=== PATIENT | female | born 1955 | race Caucasian/White ===

== ENCOUNTER 2016-09-06 14:48 | Emergency (ER) | payer BC ==
[2016-09-06] MEDS ORDERED: SODIUM CHLORIDE 0.9% 500 ML IV STA (15:39)
--- NOTE | 2016-09-06 15:42 | ED ---
General Adult HPI - General Chief complaint: Recheck/Abnormal Lab/Rx Stated complaint: [facility]/HBP Time Seen by Provider: 09/06/16 15:32 Source: patient, RN notes reviewed Mode of arrival: ambulatory Limitations: no limitations - History of Present Illness Initial comments: 61-year-old female presents to the emergency department with a chief complaint of hypertension. Patient states that this high blood pressures been going on for the past few weeks. Patient states she notices that with activities she is getting a higher blood pressure than normal. Station of her blood pressure and noticed it was 180s over 110. Patient states patient was seen pain. Patient states that she went to urgent care and they informed to come to the emergency department. Patient denies any chest pain or shortness of breath with this. Patient states that when it was very high she has a mild headache but that has since resolved. Patient states she was concerned due to the blood pressure and then medics were sent her here so she thought that she should be evaluated. Patient denies any history of heart issues. Patient states that she does have borderline blood pressure but she recently gained weight it is most likely why her blood pressures she states area the patient states that she is not currently having any other symptoms at this time.Patient denies any recent fever , chills, shortness of breath, chest pain, back pain, abdominal pain, nausea vomiting, numbness or tingling, dysuria or hematuria, constipation or diarrhea, headaches or visual changes, or any other current symptoms. - Related Data Home Medications Medication Instructions Recorded Confirmed FLUoxetine HCL [PROzac] 30 mg PO DAILY 09/06/16 09/06/16 Fluticasone Nasal [place] [Flonase 2 spr EA NOSTRIL DAILY PRN 09/06/16 09/06/16 Nasal [place]] Ibuprofen [Motrin] 400 mg PO Q6HR PRN 09/06/16 09/06/16 Potassium 99 mg PO DAILY 09/06/16 09/06/16 Spironolactone [Aldactone] 50 mg PO DAILY 09/06/16 09/06/16 clonazePAM [KlonoPIN] 0.25 mg PO Q12HR PRN 09/06/16 09/06/16 Previous Rx's Medication Instructions Recorded Lisinopril [Prinivil] 5 mg PO DAILY #10 tablet 09/06/16 Allergies Allergy/AdvReac Type Severity Reaction Status Date / Time erythromycin base Allergy Nausea & Verified 09/06/16 15:46 Vomiting sulfamethoxazole Allergy Nausea Verified 09/06/16 15:46 [From Bactrim] tetracycline Allergy Rash/Hives Verified 09/06/16 15:46 trimethoprim [From Bactrim] Allergy Nausea Verified 09/06/16 15:46 Review of Systems ROS Statement: Those systems with pertinent positive or pertinent negative responses have been documented in the HPI. ROS Other: All systems not noted in ROS Statement are negative. Past Medical History Past Medical History: GERD/Reflux Past Surgical History: Section, Cholecystectomy, Hysterectomy, Tubal Ligation Past Psychological History: Depression Smoking Status: Former smoker Past Alcohol Use History: None Reported Past Drug Use History: None Reported General Exam - General Exam Comments Initial Comments: General: The patient is awake and alert, in no distress, and does not appear acutely ill. Eye: Pupils are equal, round. Ears, nose, mouth and throat: There are moist mucous membranes and no oral lesions. Neck: The neck is supple, there is no tenderness. Cardiovascular: There is a regular rate and rhythm. No murmur, rub or gallop is appreciated. Respiratory: Lungs are clear to auscultation, respirations are non-labored, breath sounds are equal. No wheezes, stridor, rales, or rhonchi. Gastrointestinal: Soft, non-distended, non-tender abdomen without masses or organomegaly noted. There is no rebound or guarding present. No CVA tenderness. Bowel sounds are unremarkable. Back: There is no tenderness to palpation in the midline. There is no obvious deformity. No rashes noted. Musculoskeletal: Normal ROM, no tenderness, There is no pedal edema. There is no calf tenderness or swelling. Sensation intact. Pulses equal bilaterally 2+. Neurological: CN II-XII intact, There are no obvious motor or sensory deficits. Coordination appears grossly intact. Speech is normal. Skin: Skin is warm and dry and no rashes or lesions are noted. Psychiatric: Cooperative, appropriate mood & affect, normal judgment. Limitations: no limitations Course Vital Signs 09/06/16 09/06/16 09/06/16 15:00 16:07 17:00 Temperature 100.2 F H 98.2 F 98.2 F Pulse Rate 73 130 H 69 Respiratory 16 72 H 16 Rate Blood Pressure 175/74 129/82 127/86 O2 Sat by Pulse 98 94 L 94 L Oximetry Medical Decision Making - Medical Decision Making 61-year-old male presents to the emergency department with a chief complaint of hypertension. Patient's hypotension improved without any medication. Patient is asymptomatic at this time. The similar is reviewed. Did discuss that she has elevated creatinine. We did discuss we will start her on lisinopril for her blood pressure. We discussed follow up with her Dr. Flores. We discussed return parameters all the questions patient states she understands and she is in agreement with plan. She will be discharged home. - Lab Data Result diagrams: 09/06/16 15:55 09/06/16 15:55 Lab Results 09/06/16 09/06/16 09/06/16 Range/Units 15:55 15:55 15:55 WBC 8.1 (3.8-10.6) k/uL RBC 5.20 (3.80-5.40) m/uL Hgb 14.7 (11.4-16.0) gm/dL Hct 44.3 (34.0-46.0) % MCV 85.1 (80.0-100.0) fL MCH 28.3 (25.0-35.0) pg MCHC 33.3 (31.0-37.0) g/dL RDW 14.1 (11.5-15.5) % Plt Count 315 (150-450) k/uL Neutrophils % 68 % Lymphocytes % 23 % Monocytes % 5 % Eosinophils % 2 % Basophils % 1 % Neutrophils # 5.5 (1.3-7.7) k/uL Lymphocytes # 1.8 (1.0-4.8) k/uL Monocytes # 0.4 (0-1.0) k/uL Eosinophils # 0.2 (0-0.7) k/uL Basophils # 0.1 (0-0.2) k/uL Sodium 141 (137-145) mmol/L Potassium 4.1 (3.5-5.1) mmol/L Chloride 102 (98-107) mmol/L Carbon Dioxide 29 (22-30) mmol/L Anion Gap 10 mmol/L BUN 18 H (7-17) mg/dL Creatinine 1.35 H (0.52-1.04) mg/dL Est GFR (MDRD) Af Amer 48 (>60 ml/min/1.73 sqM) Est GFR (MDRD) Non-Af 40 (>60 ml/min/1.73 sqM) Glucose 92 (74-99) mg/dL Calcium 9.5 (8.4-10.2) mg/dL Total Bilirubin 0.9 (0.2-1.3) mg/dL AST 25 (14-36) U/L ALT 35 (9-52) U/L Alkaline Phosphatase 110 (38-126) U/L Total Protein 7.3 (6.3-8.2) g/dL Albumin 4.6 (3.5-5.0) g/dL Urine Color Light Yellow Urine Appearance Clear (Clear) Urine pH 7.0 (5.0-8.0) Ur Specific [place] 1.010 (1.001-1.035) Urine Protein Negative (Negative) Urine Glucose (UA) Negative (Negative) Urine Ketones Negative (Negative) Urine Blood Negative (Negative) Urine Nitrite Negative (Negative) Urine Bilirubin Negative (Negative) Urine Urobilinogen <2.0 (<2.0) mg/dL Ur Leukocyte Esterase Large H (Negative) Urine RBC <1 (0-5) /hpf Urine WBC 8 H (0-5) /hpf Ur Squamous Epith Cells <1 (0-4) /hpf Urine Bacteria Rare H (None) /hpf - EKG Data -: EKG Interpreted by Me 09/06/16 17:16 normal sinus rhythm 67 bpm, normal axis, no atopy, no S-T depressions or elevations, - Radiology Data Radiology results: report reviewed, image reviewed Disposition Clinical Impression: Hypertension, Elevated creatine kinase Disposition: HOME SELF-CARE Condition: Stable Instructions: Hypertension (ED) Additional Instructions: Please use medication as discussed. Please follow up with family doctor if symptoms have not improved over the next two days. Please return to the emergency room if your symptoms increase or worsen or for any other concerns. Prescriptions: Lisinopril [Prinivil] 5 mg PO DAILY #10 tablet Referrals: Carter Melgoza DO [Primary Care Provider] - 1-2 days Time of Disposition: 17:17
--- NOTE | 2016-09-06 16:05 | XR ---
EXAMINATION TYPE: XR chest 2V DATE OF EXAM: 09/06/2016 4:02 PM COMPARISON: NONE INDICATION: Cough TECHNIQUE: Single frontal view of the chest is obtained. FINDINGS: The heart size is normal. The pulmonary vasculature is normal. The lungs are clear. IMPRESSION: 1. No acute pulmonary process.
[2016-09-06 16:14] LABS: Basophils # (A) 0.1 k/uL (0-0.2); Basophils % (A) 1 %; CH 27.9; Eosinophils # (A) 0.2 k/uL (0-0.7); Eosinophils % (A) 2 %; HCT 44.3 % (34.0-46.0); HDW 2.58; HGB 14.7 gm/dL (11.4-16.0); Luc # (Auto) 0.14; Luc % (Auto) 2; Lymphocytes # (A) 1.8 k/uL (1.0-4.8); Lymphocytes % (A) 23 %; MCH 28.3 pg (25.0-35.0); MCHC 33.3 g/dL (31.0-37.0); MCV 85.1 fL (80.0-100.0); Mean Platelet Volume 6.8; Monocytes # (A) 0.4 k/uL (0-1.0); Monocytes % (A) 5 %; Neutrophils # (A) 5.5 k/uL (1.3-7.7); Neutrophils % (A) 68 %; RDW 14.1 % (11.5-15.5); WBC 8.1 k/uL (3.8-10.6); WBC (Perox) 8.09
[2016-09-06 16:25] LABS: Calcium 9.5 mg/dL (8.4-10.2); Potassium 4.1 mmol/L (3.5-5.1); Total Bilirubin 0.9 mg/dL (0.2-1.3); Total Protein 7.3 g/dL (6.3-8.2)
[2016-09-06 16:26] LABS: Appearance,Urine Clear (Clear); Bacteria,Urine Rare /hpf; Bilirubin,Urine Negative (Negative); Glucose,Urine (UA) Negative (Negative); Ketones,Urine Negative (Negative); Leukocyte Esterase,Urine Large (Negative); Nitrite,Urine Negative (Negative); Particle Count 729; Protein,Urine Negative (Negative); RBC,Urine <1 /hpf (0-5); Squamous Epithelial Cell,Urine <1 /hpf (0-4); UA Billing (MACRO vs. MICRO) MICRO; Urobilinogen,Urine <2.0 mg/dL (<2.0); WBC,Urine 8 /hpf (0-5)
[2016-09-06 17:09] VITALS: TEMP 98.2
[2016-09-06 17:10] VITALS: RESP 16
[2016-09-06 18:16] VITALS: BP 170/95; PULSE 75
== END 2016-09-06 18:14 | disposition home or self-care (01) ==
LOC: EC 14:48 → SUPCPDRO 14:48 → EC 18:14
DX: I10 Essential (primary) hypertension (principal); R79.89 Other specified abnormal findings of blood chemistry; R63.5 Abnormal weight gain; F32.9 Major depressive disorder, single episode, unspecified; Z87.891 Personal history of nicotine dependence; Z79.899 Other long term (current) drug therapy; Z88.1 Allergy status to other antibiotic agents
CPT/HCPCS: 36415; 71020; 80053; 81001; 85025; 93005; 99283

== ENCOUNTER → 2016-12-07 | Outpatient (CLI) | payer BC ==
--- NOTE | 2016-12-07 09:59 | CT ---
EXAMINATION TYPE: CT brain wo con DATE OF EXAM: 12/07/2016 COMPARISON: NONE HISTORY: Transiant global amnesia CT DLP: 1067 mGycm Automated exposure control for dose reduction was used. FINDINGS: Ventricular system is midline with no mass effect or displacement. Congenital cavum septum anomaly no delilah. There is no acute hemorrhage. Dural calcifications are seen. Calvarium intact. IMPRESSION: NO ACUTE INTRACRANIAL PROCESS. THE TINY AREA OF DENSITY SEEN NEAR THE THIRD VENTRICLE WHICH CAN OCCAS IONALLY BE SEEN WITH A TINY COLLOID CYST. RECOMMEND FOLLOW-UP MRI.
== END | disposition home or self-care (01) ==
LOC: RADCTMAIN 09:24
PROVIDERS: ATTEND Psychiatry & Neurology Neurology
DX: G45.4 Transient global amnesia (principal); Z88.1 Allergy status to other antibiotic agents; Z88.2 Allergy status to sulfonamides
CPT/HCPCS: 70450

== ENCOUNTER → 2017-01-20 | Outpatient (CLI) | payer BC ==
[2017-01-20 17:54] LABS: Non-African American GFR(MDRD) >60 (>60 ml/min/1.73 sqM)
--- NOTE | 2017-01-20 23:47 | MR ---
EXAMINATION TYPE: MR brain wo/w con DATE OF EXAM: 01/20/2017 COMPARISON: NONE HISTORY: Dizziness, forgetfulness TECHNIQUE: Multiplanar, multisequence images of the brain and brainstem is performed without and with IV contras t, utilizing 7.5 mL intravenous Gadavist . FINDINGS: There are numerous scattered small high signal foci at the juan-white matter junction of eliseo th cerebral hemispheres. These measure up to 6 mm. The total number is more than 25. The ventricles o f normal size. There is no midline shift. There is no sign of intracranial hemorrhage. There are is a irregular 6 mm area of increased signal on the right side of the shyam. There is no significant corti saturnino atrophy. There is cavum septum pellucidum which is a normal variant. Sella turcica appears normal . There is no evidence of an orbital mass. The contrast images show no pathologic enhancement. Pituit florencio stalk is in the midline. IMPRESSION: Numerous white matter high signal foci. These are not near the lateral ventricles and mor e likely related to chronic small vessel ischemia. No evidence of a cortical infarct.
== END | disposition home or self-care (01) ==
LOC: RADMRIMAIN 17:19
PROVIDERS: ATTEND Psychiatry & Neurology Neurology
DX: R90.89 Other abnormal findings on diagnostic imaging of central nervous system (principal); G45.4 Transient global amnesia; R93.8 Abnormal findings on diagnostic imaging of other specified body structures
CPT/HCPCS: 82565; 70553; 36415; A9581

== ENCOUNTER 2018-06-02 15:28 | Emergency (ER) | payer BC ==
--- NOTE | 2018-06-02 17:18 | ED ---
General Adult HPI - General Chief complaint: Altered Mental Status Stated complaint: POSS CVA VOMITING AND CONFUSION Source: patient, family Mode of arrival: ambulatory Limitations: no limitations - History of Present Illness Initial comments: Dictation was produced using [employer] dictation software. please excuse any grammatical, word or spelling errors. Chief Complaint: 62-year-old female with chief complaint of 20 minutes of bizarre behavior. History of Present Illness: Patient 62-year-old female. Patient states she has past medical history GERD, hypertension, chronic nausea. She was at home today when she was severely nauseated. States she had an episode that lasted approximately 25 minutes of bizarre behavior. Son was at home when patient had this episode. He reports that she was exhibiting repetitive behavior. Patient is also responding to issues that did not actually occur however she made coherent sentence just out of contacts her son. Patient is saying things like "that's pia vu," she also had an episode where she accused her son when he didn 't actually swear. The symptoms lasted for only 20 minutes and she snapped out of it and became back to normal. She states her nausea had improved as well. Patient denies any recent additions or adjustments to ointment for current medications. The ROS documented in this emergency department record has been reviewed and confirmed by me. Those systems with pertinent positive or negative responses have been documented in the HPI. All other systems are other negative and/or noncontributory. PHYSICAL EXAM: General Impression: Alert and oriented x3, not in acute distress HEENT: Normocephalic atraumatic, extra-ocular movements intact, pupils equal and reactive to light bilaterally, mucous membranes moist. Cardiovascular: Heart regular rate and rhythm, S1&S2 audible, no murmurs, rubs or gallops Chest: Lungs clear to auscultation bilaterally, no rhonchi, no wheeze, no rales Abdomen: Bowel sounds present, abdomen soft, non-tender, non-distended, no organomegaly Musculoskeletal: Pulses present and equal in all extremities, no peripheral edema Motor: Power 5/5 bilaterally, no focal deficits noted Neurological: CN II-XII grossly intact, no focal motor or sensory deficits noted Skin: Intact with no visualized rashes Psych: Normal affect and mood ED course: 62-year-old female presents with brief episode of altered mental status. Vital signs upon arrival shows blood pressure 170 06/17/2022, rest of vital signs within acceptable limits.Laboratory evaluation obtained. CBC, coag panel, metabolic panel is unremarkable. Urinalysis is negative. CT brain and chest x-ray is unremarkable. Patient's clinical presentation/HPI. Consistent with TIA or CVA. Patient's mental status changes may be secondary to adverse reaction to medication. Patient is seen neurologists in the past has had positive findings on her MRI that have not been revisited for over a year. Patient advised to follow up with neurologist. Patient given referral to neurologist. This point no further intervention is indicated at this time. Patient clear for discharge. EKG interpretation: Ventricular rate 68, normal sinus rhythm, W[place] interval 164, care is 82, QTc 440. No W[place] prolongation, no QTC prolongation, no ST or T-wave changes noted. Overall, this EKG is unremarkable - Related Data Home Medications Medication Instructions Recorded Confirmed Fluticasone Nasal [place] [Flonase 2 spray EA NOSTRIL DAILY PRN 09/06/16 06/02/18 Nasal [place]] 5htp 100mg 100 mg PO DAILY 06/02/18 06/02/18 Biotin 10,000 mcg PO DAILY 06/02/18 06/02/18 Bpp Digestive Enzymes 1 - 2 cap PO AC-TID 06/02/18 06/02/18 Cholecalciferol [Vitamin D3] 1,000 unit PO DAILY 06/02/18 06/02/18 FLUoxetine HCL [PROzac] 20 mg PO DAILY 06/02/18 06/02/18 Finasteride 0.5 mg PO DAILY 06/02/18 06/02/18 Lisinopril [Prinivil] 5 mg PO Q48H 06/02/18 06/02/18 Melatonin 3 mg PO HS 06/02/18 06/02/18 [place] 3-6-9 2 cap PO DAILY 06/02/18 06/02/18 Omeprazole [PriLOSEC] 20 mg PO DAILY 06/02/18 06/02/18 ZOLMitriptan 2.5 mg PO QID PRN 06/02/18 06/02/18 Allergies Allergy/AdvReac Type Severity Reaction Status Date / Time benzonatate Allergy Rash/Hives Verified 06/02/18 17:31 [From Tiffanie Aguilar] erythromycin base Allergy Nausea & Verified 06/02/18 17:31 Vomiting sulfamethoxazole Allergy Nausea Verified 06/02/18 17:31 [From Bactrim] tetracycline Allergy Rash/Hives Verified 06/02/18 17:31 trimethoprim [From Bactrim] Allergy Nausea Verified 06/02/18 17:31 Review of Systems ROS Statement: Those systems with pertinent positive or pertinent negative responses have been documented in the HPI. ROS Other: All systems not noted in ROS Statement are negative. Past Medical History Past Medical History: GERD/Reflux, Hypertension Additional Past Medical History / Comment(s): migraines History of Any Multi-Drug Resistant Organisms: None Reported Past Surgical History: Section, Cholecystectomy, Hysterectomy, Tubal Ligation Past Psychological History: Depression Smoking Status: Former smoker Past Alcohol Use History: None Reported Past Drug Use History: None Reported General Exam Limitations: no limitations Course Vital Signs 06/02/18 06/02/18 06/02/18 15:36 17:53 19:09 Temperature 98 F 98.1 F Pulse Rate 78 76 68 Respiratory 18 18 17 Rate Blood Pressure 173/123 133/90 144/85 O2 Sat by Pulse 99 97 99 Oximetry Medical Decision Making - Lab Data Result diagrams: 06/02/18 17:05 06/02/18 17:05 Lab Results 06/02/18 06/02/18 06/02/18 Range/Units 17:05 17:05 17:05 WBC 8.7 (3.8-10.6) k/uL RBC 5.10 (3.80-5.40) m/uL Hgb 14.4 (11.4-16.0) gm/dL Hct 43.1 (34.0-46.0) % MCV 84.5 (80.0-100.0) fL MCH 28.2 (25.0-35.0) pg MCHC 33.4 (31.0-37.0) g/dL RDW 14.4 (11.5-15.5) % Plt Count 332 (150-450) k/uL Neutrophils % 74 % Lymphocytes % 16 % Monocytes % 5 % Eosinophils % 3 % Basophils % 1 % Neutrophils # 6.4 (1.3-7.7) k/uL Lymphocytes # 1.4 (1.0-4.8) k/uL Monocytes # 0.4 (0-1.0) k/uL Eosinophils # 0.3 (0-0.7) k/uL Basophils # 0.1 (0-0.2) k/uL PT (9.0-12.0) sec INR (<1.2) APTT (22.0-30.0) sec Sodium 140 (137-145) mmol/L Potassium 4.1 (3.5-5.1) mmol/L Chloride 104 (98-107) mmol/L Carbon Dioxide 28 (22-30) mmol/L Anion Gap 8 mmol/L BUN 14 (7-17) mg/dL Creatinine 0.84 (0.52-1.04) mg/dL Est GFR (CKD-EPI)AfAm 86 (>60 ml/min/1.73 sqM) Est GFR (CKD-EPI)NonAf 75 (>60 ml/min/1.73 sqM) Glucose 108 H (74-99) mg/dL Calcium 9.6 (8.4-10.2) mg/dL Total Bilirubin 1.0 (0.2-1.3) mg/dL AST 24 (14-36) U/L ALT 40 (9-52) U/L Alkaline Phosphatase 104 (38-126) U/L Total Creatine Kinase 91 (30-135) U/L CK-MB (CK-2) <0.2 (0.0-2.4) ng/mL CK-MB (CK-2) Rel Index Troponin I <0.012 (0.000-0.034) ng/mL Total Protein 7.1 (6.3-8.2) g/dL Albumin 4.5 (3.5-5.0) g/dL Urine Color Urine Appearance (Clear) Urine pH (5.0-8.0) Ur Specific [place] (1.001-1.035) Urine Protein (Negative) Urine Glucose (UA) (Negative) Urine Ketones (Negative) Urine Blood (Negative) Urine Nitrite (Negative) Urine Bilirubin (Negative) Urine Urobilinogen (<2.0) mg/dL Ur Leukocyte Esterase (Negative) Urine RBC (0-5) /hpf Ur Squamous Epith Cells (0-4) /hpf Urine Bacteria (None) /hpf Urine Mucus (None) /hpf 06/02/18 06/02/18 Range/Units 17:05 18:52 WBC (3.8-10.6) k/uL RBC (3.80-5.40) m/uL Hgb (11.4-16.0) gm/dL Hct (34.0-46.0) % MCV (80.0-100.0) fL MCH (25.0-35.0) pg MCHC (31.0-37.0) g/dL RDW (11.5-15.5) % Plt Count (150-450) k/uL Neutrophils % % Lymphocytes % % Monocytes % % Eosinophils % % Basophils % % Neutrophils # (1.3-7.7) k/uL Lymphocytes # (1.0-4.8) k/uL Monocytes # (0-1.0) k/uL Eosinophils # (0-0.7) k/uL Basophils # (0-0.2) k/uL PT 9.8 (9.0-12.0) sec INR 0.9 (<1.2) APTT 25.9 (22.0-30.0) sec Sodium (137-145) mmol/L Potassium (3.5-5.1) mmol/L Chloride (98-107) mmol/L Carbon Dioxide (22-30) mmol/L Anion Gap mmol/L BUN (7-17) mg/dL Creatinine (0.52-1.04) mg/dL Est GFR (CKD-EPI)AfAm (>60 ml/min/1.73 sqM) Est GFR (CKD-EPI)NonAf (>60 ml/min/1.73 sqM) Glucose (74-99) mg/dL Calcium (8.4-10.2) mg/dL Total Bilirubin (0.2-1.3) mg/dL AST (14-36) U/L ALT (9-52) U/L Alkaline Phosphatase (38-126) U/L Total Creatine Kinase (30-135) U/L CK-MB (CK-2) (0.0-2.4) ng/mL CK-MB (CK-2) Rel Index Troponin I (0.000-0.034) ng/mL Total Protein (6.3-8.2) g/dL Albumin (3.5-5.0) g/dL Urine Color Light Yellow Urine Appearance Clear (Clear) Urine pH 6.0 (5.0-8.0) Ur Specific [place] 1.009 (1.001-1.035) Urine Protein Negative (Negative) Urine Glucose (UA) Negative (Negative) Urine Ketones Negative (Negative) Urine Blood Negative (Negative) Urine Nitrite Negative (Negative) Urine Bilirubin Negative (Negative) Urine Urobilinogen <2.0 (<2.0) mg/dL Ur Leukocyte Esterase Large H (Negative) Urine RBC 1 (0-5) /hpf Ur Squamous Epith Cells 1 (0-4) /hpf Urine Bacteria Occasional H (None) /hpf Urine Mucus Occasional H (None) /hpf Disposition Clinical Impression: Confusion Disposition: HOME SELF-CARE Condition: Good Instructions (If sedation given, give patient instructions): Altered Mental Status (ED) Is patient prescribed a controlled substance at d/c from ED?: No Referrals: Cyrus Tran MD [Primary Care Provider] - 1-2 days Leticia Montgomery MD [Medical Doctor] - 1-2 days Time of Disposition: 19:37
[2018-06-02 17:26] LABS: Basophils # (A) 0.1 k/uL (0-0.2); Basophils % (A) 1 %; Eosinophils # (A) 0.3 k/uL (0-0.7); Eosinophils % (A) 3 %; HCT 43.1 % (34.0-46.0); HGB 14.4 gm/dL (11.4-16.0); Lymphocytes # (A) 1.4 k/uL (1.0-4.8); Lymphocytes % (A) 16 %; MCH 28.2 pg (25.0-35.0); MCHC 33.4 g/dL (31.0-37.0); MCV 84.5 fL (80.0-100.0); Mean Platelet Volume 7.1; Monocytes # (A) 0.4 k/uL (0-1.0); Monocytes % (A) 5 %; Neutrophils # (A) 6.4 k/uL (1.3-7.7); Neutrophils % (A) 74 %; Platelet Count 332 k/uL (150-450); RDW 14.4 % (11.5-15.5); WBC 8.7 k/uL (3.8-10.6)
[2018-06-02 17:35] LABS: Albumin 4.5 g/dL (3.5-5.0); Calcium 9.6 mg/dL (8.4-10.2); INR 0.9 (<1.2); Partial Thromboplastin Time 25.9 sec (22.0-30.0); Potassium 4.1 mmol/L (3.5-5.1); Prothrombin Time 9.8 sec (9.0-12.0); Total Protein 7.1 g/dL (6.3-8.2)
[2018-06-02 17:45] LABS: Creatine Kinase 91 U/L (30-135)
[2018-06-02] MEDS: SODIUM CHLORIDE 0.9% 500 ML 500 ML IV STA (17:55)
[2018-06-02 17:58] LABS: Creatine Kinase MB <0.2 ng/mL (0.0-2.4); Troponin I <0.012 ng/mL (0.000-0.034)
--- NOTE | 2018-06-02 18:09 | CT ---
EXAMINATION TYPE: CT brain wo con DATE OF EXAM: 06/02/2018 COMPARISON: 12/07/2016 HISTORY: CT DLP: 1119.4 mGycm Automated exposure control for dose reduction was used. FINDINGS: Ventricles of normal size. There is no mass effect nor midline shift. There is no sign of intracrania l hemorrhage. Calvarium is intact. IMPRESSION: NEGATIVE CT SCAN OF THE BRAIN. NO CHANGE.
--- NOTE | 2018-06-02 18:10 | XR ---
EXAMINATION TYPE: XR chest 2V DATE OF EXAM: 06/02/2018 COMPARISON: 09/06/2016 HISTORY: Altered mental status TECHNIQUE: Frontal and lateral views of the chest are obtained. FINDINGS: Heart and mediastinum are normal. Lungs are clear. Diaphragm is normal. Bony thorax is int act. There are chest leads. IMPRESSION: Normal chest. No change.
[2018-06-02 19:10] VITALS: BP 144/85; PULSE 68; RESP 17; TEMP 98.1
[2018-06-02 19:12] LABS: Appearance,Urine Clear (Clear); Bacteria,Urine Occasional /hpf; Bilirubin,Urine Negative (Negative); Blood,Urine Negative (Negative); Color,Urine Light Yellow; Glucose,Urine (UA) Negative (Negative); Ketones,Urine Negative (Negative); Leukocyte Esterase,Urine Large (Negative); Mucus,Urine Occasional /hpf; Nitrite,Urine Negative (Negative); Protein,Urine Negative (Negative); RBC,Urine 1 /hpf (0-5); Specific Gravity,Urine 1.009 (1.001-1.035); Squamous Epithelial Cell,Urine 1 /hpf (0-4); Urobilinogen,Urine <2.0 mg/dL (<2.0)
== END 2018-06-02 19:54 | disposition home or self-care (01) ==
LOC: EC 15:28
DX: R41.0 Disorientation, unspecified (principal); R11.0 Nausea; I10 Essential (primary) hypertension; F32.9 Major depressive disorder, single episode, unspecified; K21.9 Gastro-esophageal reflux disease without esophagitis; Z79.899 Other long term (current) drug therapy; Z88.1 Allergy status to other antibiotic agents; Z88.2 Allergy status to sulfonamides; Z88.8 Allergy status to other drugs, medicaments and biological substances; Z87.891 Personal history of nicotine dependence
CPT/HCPCS: 36415; 70450; 71046; 80053; 81001; 82550; 82553; 84484; 85025; 85610; 85730; 87086; 93005; 96360; 96361; 99285

== ENCOUNTER → 2018-06-03 | Outpatient (CLI) | payer BC ==
[2018-06-06 14:55] LABS: Cow's Milk IgE Class CLASS 0; Egg White IgE <0.35 kU/L (<0.35); Peanut IgE <0.35 kU/L (<0.35); Potato IgE <0.35 kU/L (<0.35); Potato IgE Class CLASS 0; Soybean IgE <0.35 kU/L (<0.35)
== END ==
LOC: LABWHC1 09:21
PROVIDERS: ATTEND Otolaryngology
DX: J30.89 Other allergic rhinitis (principal)
CPT/HCPCS: 36415; 86001; 86003

== ENCOUNTER → 2018-06-20 | Outpatient (CLI) | payer BC ==
[2018-06-20 13:35] LABS: HCT 42.9 % (34.0-46.0); HGB 13.6 gm/dL (11.4-16.0); MCH 27.2 pg (25.0-35.0); MCHC 31.7 g/dL (31.0-37.0); MCV 85.9 fL (80.0-100.0); Mean Platelet Volume 6.5; Platelet Count 312 k/uL (150-450); RBC 4.99 m/uL (3.80-5.40); RDW 14.1 % (11.5-15.5); WBC 6.4 k/uL (3.8-10.6)
[2018-06-20 19:48] LABS: Vitamin D 25 Hydroxy 17.3 ng/mL (30.0-100.0)
[2018-06-20 20:02] LABS: Albumin 4.4 g/dL (3.80-4.90); Albumin/Globulin Ratio 2.59 (1.60-3.17); Anion Gap 6.8 mmol/L (4.00-12.00); Calcium 9.4 mg/dL (8.7-10.3); Carbon Dioxide 28.2 mmol/L (21.6-31.8); Globulin 1.7 g/dL (1.6-3.3); Total Bilirubin 0.5 mg/dL (0.3-1.2); Total Protein 6.1 g/dL (6.2-8.2)
[2018-06-20 20:18] LABS: Folate, Serum 14.4 ng/mL
== END ==
LOC: LABWHC1 12:27
PROVIDERS: ATTEND Nurse Practitioner Family
DX: R41.3 Other amnesia (principal)
CPT/HCPCS: 36415; 80053; 82306; 82607; 82746; 83090; 84439; 84443; 84481; 85027

== ENCOUNTER 2018-06-30 10:57 | Day surgery (SDC) | payer BC ==
[2018-06-28 10:41] VITALS: BMI 30.9
[~2018-06-30 10:57] MED LIST: LACTATED RINGERS 1,000 ML IV SCH
[2018-06-30 11:18] VITALS: TEMP 98
[2018-06-30] MEDS ORDERED: LIDOCAINE 1% 20 ML VIAL (10MG/ML) FOR IV START INTRADERMA ONE (11:21)
[2018-06-30 11:24] LABS: Glucose,Whole Blood 93 mg/dL (75-99)
[2018-06-30] MEDS ORDERED: PROPOFOL 10 MG/ML 20 ML VIAL IV ONE (11:41)
[2018-06-30] MEDS ORDERED: LIDOCAINE 1% INJ 10MG/ML (20 ML MDV) ONE (11:41)
[2018-06-30] MEDS ORDERED: fentaNYL (PF) 50 MCG/ML 2 ML AMP ONE (11:41)
--- NOTE | 2018-06-30 12:19 | P.PCN ---
Date of Procedure: 06/30/18 Procedure(s) Performed: Procedures: 1. Esophagogastroduodenoscopy and biopsy. 2. Total colonoscopy. Preoperative diagnosis: Chronic reflux symptoms and screening for colon cancer. Postoperative diagnosis: 1. Small sliding hiatal hernia with no obvious esophagitis or complaints complicated reflux disease. 2. Mild antral gastritis. 3. Sigmoid diverticulosis. 4. Biopsies obtained from the duodenum, antrum and esophagus. Preparation: HalfLytely prep. Sedation: Was provided by anesthesia. Brief clinical history: The patient is a 62-year-old female who was evaluated in the office earlier this month regarding chronic reflux symptoms. The patient has required PPI therapy in the past and most recently she was restarted on it 2 weeks ago. In addition, she is scheduled for colon cancer screening because of her age as his risk factor. Her last colonoscopy was more than 10 years ago. Procedure: With the patient on her left lateral decubitus position and after informed consent and adequate sedation, I passed the Olympus-GIF H 190 video upper endoscope through the cricopharyngeus down the esophagus. GE junction was around 36-37 cm from the incisors and there was a very small sliding hiatal hernia with no obvious esophagitis or complicated reflux disease. The endoscope was then passed into the stomach which was insufflated with air and inspected in detail including the retroflex view in the cardia. There was some mottling and erythema in the antrum but no ulcers or erosions. Pyloric channel, duodenal bulb, post bulbar area and descending duodenum appeared within normal limits. I obtained biopsies from the duodenum, antrum and esophagus then the endoscope was withdrawn and I proceeded with the colonoscopy. Perianal area did not show any fissures or fistulas. There were no masses felt on digital rectal examination. The Olympus CFH 190L video colonoscope was then inserted in the rectum in the usual fashion and advanced to the cecum. Several diverticular orifices were seen scattered in the sigmoid with no evidence of acute diverticulitis or strictures. The mucosa appeared healthy. There was no significant polyps or tumors. I retroflexed the endoscope in the rectum before the endoscope was withdrawn. The patient tolerated the procedure well. Plan: The patient was reassured. Will await biopsy results. Discussed dietary measures. Further plans can be made based on her course and biopsy results. I will keep you updated on her progress.
[2018-06-30 12:20] VITALS: RESP 18
[2018-06-30 12:40] VITALS: BP 160/97; PULSE 69
== END 2018-06-30 12:51 | disposition home or self-care (01) ==
LOC: ORWHC2ENDO 10:57
DX: K29.50 Unspecified chronic gastritis without bleeding (principal); K21.9 Gastro-esophageal reflux disease without esophagitis; K57.30 Diverticulosis of large intestine without perforation or abscess without bleeding; K44.9 Diaphragmatic hernia without obstruction or gangrene; I10 Essential (primary) hypertension; E78.5 Hyperlipidemia, unspecified; F32.9 Major depressive disorder, single episode, unspecified; M19.90 Unspecified osteoarthritis, unspecified site; G43.909 Migraine, unspecified, not intractable, without status migrainosus; Z88.1 Allergy status to other antibiotic agents; Z88.2 Allergy status to sulfonamides; Z88.8 Allergy status to other drugs, medicaments and biological substances; Z79.82 Long term (current) use of aspirin; Z79.899 Other long term (current) drug therapy
CPT/HCPCS: 88305; 45378; 43239; J2001; J3010; J2704

== ENCOUNTER → 2018-07-13 | Outpatient (CLI) | payer BC ==
--- NOTE | 2018-07-14 10:32 | MM ---
Reason for exam: screening (asymptomatic). Last mammogram was performed 10 years and 6 months ago. History: Patient is postmenopausal. Cyst aspiration of the right breast. Physical Findings: A clinical breast exam by your physician is recommended on an annual basis and results should be correlated with mammographic findings. MG Screening Mammo w CAD Bilateral CC and MLO view(s) were taken. Prior study comparison: January 25, 2008, mammogram, performed at [place]. The breast tissue is heterogeneously dense. This may lower the sensitivity of mammography. Focal asymmetry posterior 1 o'clock position may represent superimposition shadow. Additional evaluation recommended. ASSESSMENT: Incomplete: need additional imaging evaluation, BI-RAD 0 RECOMMENDATION: Special view mammogram of the left breast. (3D) If lesion persists on supplemental views, image directed ultrasound is recommended. [facility] will attempt to contact patient to return for supplemental views and ultrasound if indicated.
== END | disposition home or self-care (01) ==
LOC: RADMAMWWP 16:15
PROVIDERS: ATTEND Family Medicine
DX: Z12.31 Encounter for screening mammogram for malignant neoplasm of breast (principal)
CPT/HCPCS: 77067

== ENCOUNTER → 2018-07-19 | Outpatient (CLI) | payer BC ==
--- NOTE | 2018-07-20 07:48 | MM ---
Reason for exam: additional evaluation requested from abnormal screening. Last mammogram was performed less than 1 month ago. History: Patient is postmenopausal. Cyst aspiration of the right breast. Physical Findings: Nurse did not find any significant physical abnormalities on exam. MG Work Up Mamm w CAD LT Spot compression CC, spot compression MLO, and LM view(s) were taken of the left breast. Prior study comparison: July 13, 2018, bilateral MG screening mammo w CAD. January 25, 2008, mammogram, performed at [facility]. The breast tissue is heterogeneously dense. This may lower the sensitivity of mammography. These results were verbally communicated with the patient and result sheet given to the patient on 07/19/18. ASSESSMENT: Probably benign, BI-RAD 3 RECOMMENDATION: Follow-up diagnostic mammogram of the left breast in 6 months.
== END | disposition home or self-care (01) ==
LOC: RADMAMWWP 14:08
PROVIDERS: ATTEND Family Medicine
DX: R92.8 Other abnormal and inconclusive findings on diagnostic imaging of breast (principal)
CPT/HCPCS: 77065

== ENCOUNTER → 2018-07-25 | Outpatient (CLI) | payer BC | END | disposition home or self-care (01) | LOC: LABWHC1 12:30 | PROVIDERS: ATTEND Nurse Practitioner Family | DX: G35 Multiple sclerosis (principal) | CPT/HCPCS: 36415; 82040; 82042; 82784; 83916 ==

== ENCOUNTER → 2020-08-08 | Outpatient (CLI) | payer MEDICARE, OTHER ==
--- NOTE | 2020-08-08 18:21 | CONS ---
CONSULTATION DATE OF SERVICE: 08/08/2020 This 65-year-old lady has been evaluated in the sleep center for possible obstructive sleep apnea-hypopnea syndrome. HISTORY OF PRESENT ILLNESS/SLEEP-WAKE EVALUATION: The patient usually goes to bed quite late, around 2:30 a.m., and sleeps for 6 to 8 hours. She goes to bed so late because she picks up her son from his work on the second shift. She does have problems with falling asleep sometimes, although no TV in bedroom. She usually sleeps on the side position with loud snoring. She has been told about episodes of stopped breathing during sleep. She has awakenings with episodes of choking and nocturia; also episodes of gasping for air. In the morning she has episodes of morning headaches. In the morning the patient wakes up tired, worries about her sleep, has problems with memory, concentration, irritability, depression, anxiety. Hernandez Sleepiness Scale is 8. During the day, she rarely takes naps. Positive history of sleep paralysis. No history of hypnagogic hallucinations or cataplexy. PAST MEDICAL HISTORY: Positive for hypertension, hyperlipidemia, allergic asthma, headaches, acid reflux, nasal polyps, depression. PAST SURGICAL HISTORY: Hysterectomy, . MEDICATIONS: Propecia, Flonase, Flexeril, albuterol inhaler, Qvar inhaler, Claritin when needed. SOCIAL HISTORY: Negative for smoking or using alcohol. FAMILY HISTORY: Positive for sleep apnea. REVIEW OF SYSTEMS: No fevers. No double vision. No recent chest pain. No shortness of breath. No abdominal pain. No bleeding episodes. No blood in the urine. No seizure episodes. Loud snoring, awakenings from sleep. Has episodes of choking. PHYSICAL EXAMINATION: GENERAL: A pleasant lady without distress. VITAL SIGNS: BP 134/89, HR 81, RR 12, height 5 feet 4 inches, weight 183.8, temperature 97.4, oxygen saturation at room air 97%. HEENT: PERRLA, EOMI. Evaluation of oropharynx showed tongue protrudes midline. Extremely low position of soft palate. Mallampati IV. NECK: Supple. No JVD. Thyroid is not palpable. Neck measures 15 inches in circumference. LUNGS: Clear to percussion and to auscultation. Good air exchange. No wheezing or rhonchi. HEART: S1, S2 regular. No murmurs, gallops or rubs. ABDOMEN: Slightly obese. EXTREMITIES: No clubbing or cyanosis. LEAD MASON TENDER: Awake, alert, and oriented X3. Cranial nerves 2 to 7 intact. There is no fasciculation or atrophy. noted. No focal deficits observed. IMPRESSION: 1. Loud snoring, awakenings from sleep with choking and gasping for air, witnessed episodes of stopped breathing during sleep, extremely low position of soft palate, Mallampati IV; obstructive sleep apnea-hypopnea syndrome. 2. History of hypertension, according to the patient. 3. Hyperlipidemia. 4. Allergic asthma. 5. Headaches. 6. Episodes of sleep paralysis. 7. Acid reflux. 8. Nasal polyps. 9. History of depression. 10.Status post partial hysterectomy. 11.Status post section. 12.Status post surgery on the right side for cataract. PLAN: 1. Polysomnography for evaluation of patient's breathing during sleep. 2. CPAP/BiPAP titration if sleep study confirms obstructive sleep apnea-hypopnea syndrome. 3. Preferable position during sleep on the side. 4. No driving if patient feels any sleepiness. 5. I will see patient for follow up visit to explain results of testing and following plan. Thank you very much for referring this patient for consultation. Sincerely, Jonathan Carl MD, PhD, FAASM Diplomat of [employer] [employer] [place] MMODL / OTILION: [id number] /
== END | disposition home or self-care (01) ==
CPT/HCPCS: 99211

== ENCOUNTER → 2021-01-15 | Outpatient (CLI) | payer MEDICARE ==
--- NOTE | 2021-01-15 20:07 | SFUN ---
SLEEP CENTER FOLLOW UP NOTE DATE OF SERVICE: 01/15/2021 This 65-year-old lady has been followed in Sleep Center for treatment of obstructive sleep apnea-hypopnea syndrome. Recently the patient had sleep studies which indicated that she has moderate obstructive sleep apnea-hypopnea syndrome, and her respiration was normalized on treatment with CPAP. I explained the results of the sleep studies to patient in detail. Today is her first visit after she was started on treatment with CPAP. She feels significantly better with CPAP, sleeps better, feels better during the day. Benton Sleepiness Scale is normal at 5. I checked her CPAP unit. Range of the pressure is 5-9 in automatic regimen, usage 30/30 nights for more than 4 hours, average 8.2 hours per night. Leak is zero L/minute. She is using a DreamWear [id number] mask. Apnea-hypopnea index is 2.0, which is perfect. PHYSICAL EXAMINATION: GENERAL: Pleasant patient in no distress. VITAL SIGNS: BP 150/92, HR 62, RR 12, weight 181.2, temperature 97.0, oxygen saturation at room air 99%. HEENT: PERRLA, EOMI, evaluation of oropharynx showed tongue protrudes midline. NECK: Supple, no JVD. Thyroid is not palpable. LUNGS: Clear to percussion and to auscultation. Good air exchange. No wheezing or rhonchi. HEART: S1, S2 regular. No murmurs, gallops, or rubs. ABDOMEN: Slightly obese. EXTREMITIES: No clubbing or cyanosis. MUSIC ARRANGER: Awake, alert, and oriented X3. Cranial nerves 2 to 7 intact. There is no fasciculation or atrophy. noted. No focal deficits observed. IMPRESSION: 1. Obstructive sleep apnea-hypopnea syndrome; apnea-hypopnea index 15.5 with oxygen desaturation to 71.8%. The patient demonstrated 100% compliance with treatment, benefitting from treatment. 2. Hypertension. 3. Hyperlipidemia. 4. History of allergic asthma. 5. History of headaches. 6. History of episodes of sleep paralysis in the past. No any recent episodes. 7. Nasal polyps. 8. History of depression. 9. Status post partial hysterectomy. 10.Status post . 11.Status post cataract surgery on the right side. PLAN: 1. Patient will continue to use PAP equipment every night for the whole night. 2. Sleep hygiene with regular time in bed for at least 7-1/2 to 8 hours. 3. Precautions related to driving. No driving if feeling sleepiness. 4. I will maintain all necessary prescription for PAP supplies including mask, tube, filters. 5. Watching weight. 6. Follow-up visit in 6 months or earlier if patient has any problems. Thank you very much for allowing me to participate in the management of your patient. Sincerely, Jonathan Carl MD, PhD, FAASM Diplomat of [employer] Sleep Medicine Board of [employer] [facility] [place] MMODL / IJN: [id number] /
== END ==
LOC: SLEEP 11:32
PROVIDERS: ATTEND Internal Medicine
DX: G47.33 Obstructive sleep apnea (adult) (pediatric) (principal); G47.36 Sleep related hypoventilation in conditions classified elsewhere; I10 Essential (primary) hypertension; E78.5 Hyperlipidemia, unspecified; J33.9 Nasal polyp, unspecified; Z87.59 Personal history of other complications of pregnancy, childbirth and the puerperium; Z98.41 Cataract extraction status, right eye; Z90.711 Acquired absence of uterus with remaining cervical stump; Z99.89 Dependence on other enabling machines and devices; Z88.1 Allergy status to other antibiotic agents; Z88.2 Allergy status to sulfonamides; Z87.891 Personal history of nicotine dependence
CPT/HCPCS: 99211